=== PATIENT | female | born 1970 | race Caucasian/White ===

== ENCOUNTER 2022-07-28 23:15 | Emergency (ER) | payer SELFPAY ==
[~2022-07-28] VITALS: Ht 167.6 cm; Wt 81.0 kg
[2022-07-28 23:17] VITALS: BP 127/82
== END 2022-07-28 23:44 | disposition left against medical advice (07) ==
LOC: ER 23:39
DX: Z53.21 Procedure and treatment not carried out due to patient leaving prior to being seen by health care provider (principal)